=== PATIENT | male | born 2000 | race Asian ===

== ENCOUNTER 2022-12-21 12:56 | Inpatient (IN) ==
[2022-12-21] MEDS ORDERED: LORazepam 2 mg VIAL 1 ml ONE ×3 (13:07→13:47)
[2022-12-21] MEDS ORDERED: levETIRAcetam IVPREMIX 1,000 MG/100 ML BAG IVPB ONE (13:11)
[2022-12-21] MEDS ORDERED: Lorazepam PYXIS KEY PRN (13:23)
[2022-12-21] MEDS ORDERED: LORazepam 2 mg VIAL 1 ml IV PUSH ONE (13:23)
[2022-12-21] MEDS ORDERED: Lactated Ringers 1000 ml BAG 1,000 ML IV ONE (13:26)
[2022-12-21 13:38] LABS: Hematocrit 52.8 % (38-53); Hemoglobin 16.8 g/dL (13.2-16.3); Mean Corpuscular Hemoglobin 31.9 pg (27-33); Mean Corpuscular Hgb Conc 31.8 g/dL (31-36); Mean Corpuscular Volume 100.4 fL (80-97); Platelet Count 303 10^3/uL (150-450); Red Blood Count 5.26 10^6/uL (4.06-5.63); White Blood Count 16.3 10^3/uL (3.6-10.2)
[2022-12-21 13:52] LABS: PCO2 Arterial 28 mmHg (35-45); PO2 Arterial 192 mmHg (80-100)
[2022-12-21 14:04] LABS: ABS Basophils 0.1 10^3/uL (0.0-0.1); ABS Eosinophils 0.1 10^3/uL (0.0-0.5); ABS Lymphocytes 6.9 10^3/uL (1.0-4.8); ABS Monocytes 1.4 10^3/uL (0.0-1.1); ABS Neutrophils 7.8 10^3/uL (1.5-7.6); ABS Nucleated RBC 0.02 10^3/ul; Eosinophil % 0.7 %; Lymphocyte % 42.4 %; Nucleated Red Blood Cells % 0.1 /100 WBC (0.0-0.4)
[2022-12-21 14:28] LABS: Albumin 5.9 g/dL (3.2-5.2); Calcium 11.7 mg/dL (8.6-10.3); Chloride 106 mmol/L (101-111); Potassium 3.7 mmol/L (3.5-5.0); Sodium 145 mmol/L (135-145)
[2022-12-21 14:34] LABS: ALT 30 U/L (7-52); AST 28 U/L (13-39); Albumin/Globulin Ratio 1.6 (1-3); Alkaline Phosphatase 76 U/L (35-149); Blood Urea Nitrogen 15 mg/dL (6-24); C Reactive Protein < 1.00 mg/L (<8.01); Creatinine, Serum 1.19 mg/dL (0.67-1.17); Globulin 3.7 g/dL (2-4); Glucose 209 mg/dL (70-100); Lipase 14 U/L (11.0-82.0); Phosphorus 4.9 mg/dL (2.5-5.0); Total Protein 9.6 g/dL (6.4-8.9)
[2022-12-21] MEDS ORDERED: NS 0.9% 1000 ml BAG 1,000 ML IV ONE ×2 (14:36→14:37)
[2022-12-21] MEDS ORDERED: LaCOSAMide VIAL 50 MG in NS 0.9% 50 ML 50 ML IV ONE (14:36)
[2022-12-21 14:49] LABS: Anion Gap 32 mmol/L (2-16); CO2 Carbon Dioxide 7 mmol/L (22-32)
[2022-12-21] MEDS ORDERED: cefTRIAXone 1 gm/50 mL D5W 1 GM/50 ML BAG IV SCH (15:00)
[2022-12-21] MEDS ORDERED: Azithromycin 500 mg/250 ml NS 500 MG/250 ML BAG IVPB SCH (15:00)
[2022-12-21 15:46] LABS: PCO2 Arterial 33 mmHg (35-45); PO2 Arterial 132 mmHg (80-100)
[2022-12-21] MEDS ORDERED: Enoxaparin 40 MG/0.4 ML SYR SUBCUT SCH (16:00)
[2022-12-21 17:33] LABS: Urine Appearance Clear; Urine Bilirubin Negative (Negative); Urine Blood 2+ (Negative); Urine Color Straw; Urine Glucose 1+(50 mg/dL) (Negative); Urine Ketones Negative (Negative); Urine Nitrite Negative (Negative); Urine Protein 1+(30 mg/dL) (Negative); Urine Urobilinogen Negative (Negative)
[2022-12-21 17:36] LABS: Urine Bacteria Absent (Absent); Urine Red Blood Cell 2+(6-10/hpf) (Absent); Urine White Blood Cell Absent (Absent)
[2022-12-21 19:56] LABS: Urine Benzodiazepine Screen None Detected (None Detect); Urine Cannabinoids Screen None Detected (None Detect); Urine Opiates Screen None Detected (None Detect)
[2022-12-21] MEDS ORDERED: levETIRAcetam 1000MG IVPREMIX 1,000 MG/100 ML BAG IVPB SCH (21:00)
[2022-12-22 04:18] LABS: ABS Lymphocytes 2.2 10^3/uL (1.0-4.8); ABS Monocytes 1.3 10^3/uL (0.0-1.1); Eosinophil % 0.1 %; Hematocrit 38.2 % (38-53); Hemoglobin 13.2 g/dL (13.2-16.3); Mean Corpuscular Hgb Conc 34.4 g/dL (31-36); Mean Corpuscular Volume 93.1 fL (80-97); Mean Platelet Volume 7.3 fL (7.5-11.2); Platelet Count 222 10^3/uL (150-450); Red Blood Count 4.11 10^6/uL (4.06-5.63); White Blood Count 15.5 10^3/uL (3.6-10.2)
[2022-12-22 04:39] LABS: Calcium 8.6 mg/dL (8.6-10.3); Creatinine, Serum 0.87 mg/dL (0.67-1.17); Magnesium 2.4 mg/dL (1.9-2.7); Phosphorus 3.1 mg/dL (2.5-5.0); Potassium 3.9 mmol/L (3.5-5.0); eGFR CKD-EPI 124.3 (>60)
[2022-12-22] MEDS ORDERED: Influenza vaccine *QUAD* *2023-24* 0.5 ML SYRINGE IM ONE (11:00)
[2022-12-22 11:34] VITALS: BP 125/75
== END 2022-12-22 11:10 | disposition home or self-care (01) | DRG 101 ==
LOC: ED 12:56 → EDHOLD 14:40 → ICU 17:21
PROVIDERS: ADMIT Internal Medicine; ATTEND Internal Medicine